=== PATIENT | male | born 2000 | race Hispanic/Latino ===

== ENCOUNTER 2022-10-13 20:10 | Emergency (ER) | payer SELFPAY ==
[~2022-10-13] VITALS: Ht 180.3 cm; Wt 72.0 kg
[2022-10-13] MEDS ORDERED: ULTRAM50 MG PO (22:24)
[2022-10-13] MEDS ORDERED: CEPHALEXIN500 MG PO (22:32)
[2022-10-13 23:18] VITALS: BP 121/70
== END 2022-10-13 23:18 | disposition home or self-care (01) | DRG 159 ==
LOC: ED 20:10
DX: S02.641A Fracture of ramus of right mandible, initial encounter for closed fracture (principal); Y04.0XXA Assault by unarmed brawl or fight, initial encounter